=== PATIENT | female | born 1970 | race Caucasian/White ===

== ENCOUNTER → 2017-01-19 | Outpatient (CLI) | payer BC | LOC: MOB LAB 09:50 | PROVIDERS: ATTEND Nurse Practitioner Family | DX: Z01.419 Encounter for gynecological examination (general) (routine) without abnormal findings (principal) | CPT/HCPCS: 87491; 87591 ==

== ENCOUNTER → 2017-01-26 | Outpatient (CLI) | payer BC ==
--- NOTE | 2017-01-26 13:10 | DI ---
PELVIC ULTRASOUND, 01/26/2017 8:14 AM Clinical History: Dysfunctional uterine bleeding. Previous Exam: None at this facility. Technique: Transabdominal and transvaginal scans are performed. The uterus measures approximately 50 x 80 x 90 mm and is anteroflexed. The central uterine stripe gemma sures 14 mm. In the region of the fundus where the uterine stripe is thickness, there are hypoechoic areas that are contiguous with the uterine lining. They have the same sonographic pattern as the surr ounding uterine tissue and small submucosal fibroids cannot be excluded. The right ovary has a 9 mm s imple cyst and is otherwise normal. The left ovary is also normal. There are no fluid collections or masses. Readin. There is thickening of the central uterine stripe at 14 mm. Slightly hypoechoic areas are present within the central uterine stripe in these appear to be contiguous with the uterine wall and may rep resent submucosal fibroids. The uterus itself is otherwise normal. 2. There is a small simple cyst of the right ovary. The left ovary is normal.
--- NOTE | 2017-01-26 19:01 | DI ---
BILATERAL SCREENING FULL FIELD DIGITAL MAMMOGRAMS, 01/26/2017 8:14 AM: Clinical History: Screening. Previous Exam: None at this facility. The patient indicated that she has had a prior mammogram in 201 5 from [facility] [place]. We have requested the prior study. A supplemental rep ort will be issued upon receipt of that prior exam. Routine mediolateral oblique and craniocaudal views of each breast are obtained. Breast tissue densit y is rated as very dense. In the left upper-outer quadrant in the axillary tail region, there is an o void low-density opaque nodule measuring approximately 20 mm in diameter. This has the appearance of a cyst. Before any workup is initiated, comparison with previous mammograms is recommended. There are no abnormal calcifications. Skin contours, nipples, and lower axillary regions are normal. These benjie mograms were evaluated and reviewed with CAD software. Follow Up: Comparison with old mammograms is recommended. BIRADS: 0: Incomplete. Comparison with outside mammograms is recommended before any diagnostic work u p is initiated. Reading: Incomplete: Need prior mammograms for comparison.
== END ==
LOC: US 08:10
PROVIDERS: ATTEND Nurse Practitioner Family
DX: N93.8 Other specified abnormal uterine and vaginal bleeding (principal); N83.201 Unspecified ovarian cyst, right side; Z12.31 Encounter for screening mammogram for malignant neoplasm of breast; Z01.419 Encounter for gynecological examination (general) (routine) without abnormal findings
CPT/HCPCS: 76830; 76856; G0202

== ENCOUNTER → 2017-02-03 | Outpatient (CLI) | payer BC ==
[2017-02-03 09:56] LABS: BILIRUBIN,URINE NEGATIVE (NEG); CLARITY,URINE CLEAR (CLEAR); COLOR,URINE YELLOW; GLUCOSE, URINE (UA) NEGATIVE (NEG); NITRATE,URINE NEGATIVE (NEG); OCCULT BLOOD,URINE NEGATIVE (NEG); PROTEIN,URINE NEGATIVE (NEG); UROBILINOGEN,URINE 0.2 mg/dL (0.2)
[2017-02-03 09:57] LABS: URINE SAMPLE TYPE CLEAN CATCH URINE
[2017-02-03 10:35] LABS: SQUAMOUS EPITHELIAL CELL,UR RARE
== END ==
LOC: MOB LAB 08:16
PROVIDERS: ATTEND Obstetrics & Gynecology
DX: N39.41 Urge incontinence (principal)
CPT/HCPCS: 81001

== ENCOUNTER → 2017-02-23 | Outpatient (CLI) | payer BC ==
--- NOTE | 2017-02-23 10:53 | DI ---
LEFT BREAST ULTRASOUND, 02/23/2017 8:14 AM: Clinical History: Abnormal mammogram. Breast ultrasound was recommended after comparison with outside mammograms was performed. Scans are performed by the technologist and myself through all four quadrants of the left breast with the high resolution linear array probe. Color Doppler ultrasound was also performed. There are 2 cysts visible in the left upper-outer quadrant. They both measure approximately 15 x 15 x 25 mm and one is located at the 2:00 position and the other is located in proximity to the first les ion at the 3:00 position. In addition, multiple smaller cysts are visualized ranging in size from 5 m m up to 10 mm virtually in every quadrant. No solid lesions are identified. Follow Up: As long as this patient remains clinically asymptomatic, she may reenter a routine breast surveillance protocol consisting of monthly self breast exams if she so desires, and mammograms every year. BIRADS Category: 2. Benign finding. The abnormality located in the left upper-outer quadrant seen on the mammogram represents a cyst. Multiple other cysts are also noted. Reading: Benign finding.
== END ==
LOC: US 08:10
PROVIDERS: ATTEND Nurse Practitioner Family
DX: R92.8 Other abnormal and inconclusive findings on diagnostic imaging of breast (principal)
CPT/HCPCS: 76641

== ENCOUNTER 2017-07-20 10:51 | Observation (INO) ==
[2017-07-20] MEDS ORDERED: LIDOCAINE W/ SODIUM BICARB 0.5 ML SYR ONE (10:53)
[2017-07-20] MEDS ORDERED: Lactated Ringers 2,000 ML PRIMARY IV ONE (10:53)
[2017-07-20] MEDS ORDERED: Sodium Chloride 0.9% 100 ML IV ONE ×2 (10:54→19:18)
[2017-07-20 11:17] LABS: BILIRUBIN,URINE NEGATIVE (NEG); CLARITY,URINE CLEAR (CLEAR); COLOR,URINE YELLOW; GLUCOSE, URINE (UA) NEGATIVE (NEG); NITRATE,URINE NEGATIVE (NEG); OCCULT BLOOD,URINE Trace-intact (NEG); PH,URINE 5.5 (5.0-8.5); PROTEIN,URINE NEGATIVE (NEG); UROBILINOGEN,URINE 0.2 EU/dL (0.2)
[2017-07-20 11:20] LABS: RBC,URINE 0-3 /hpf; SQUAMOUS EPITHELIAL CELL,UR RARE; URINE SAMPLE TYPE CLEAN CATCH URINE
[2017-07-20 11:27] LABS: Hematocrit [HCT] 43.4 % (37.0-47.0); Hemoglobin [HGB] 14.6 g/dL (12.0-16.0)
[2017-07-20] MEDS ORDERED: ROCURONIUM 10 MG/1 ML - 5 ML VIAL IVP ONE (12:30)
[2017-07-20] MEDS ORDERED: fentaNYL Inj 100 MCG/2 ML VIAL ONE ×2 (12:33→19:23)
[2017-07-20] MEDS ORDERED: BUPivacaine 0.5%/Epi Inj 50 ML VIAL ONE (12:33)
[2017-07-20] MEDS ORDERED: KETOROLAC 30 MG/1 ML VIAL ONE (12:33)
[2017-07-20] MEDS ORDERED: LIDOCAINE HCL 2 % 10 ML JELLY URO-JECT TOPICAL ONE ×2 (12:33→13:04)
[2017-07-20] MEDS ORDERED: ONDANSETRON 4 MG/2 ML VIAL ONE (12:33)
[2017-07-20] MEDS ORDERED: MIDAZOLAM 5 MG/1 ML ONE ×2 (12:33→19:24)
[2017-07-20] MEDS ORDERED: LIDOCAINE MPF 2% - 5 ML (20 MG/1 ML) ONE ×2 (12:33→19:24)
--- NOTE | 2017-07-20 12:46 | OB.OP.NOTE ---
Operative Report Surgeon: Ser[facility]in Integrated Program Teacher: Bruce Woods MD Anesthesia Type: General Anesthesia Provider: Jaspal Atkinson CRNA Surgery Date: 07/20/17 Preoperative Diagnosis: Menometrorrhagia, dysmenorrhea, fibroid uterus, dyspareunia, patient desires definitive management with a hysterectomy and BSO Postoperative Diagnosis: Same Procedure: Exam under anesthesia, Robotic-assisted laparoscopic hysterectomy, bilateral salpingo-oophorectomy, cystoscopy Estimated Blood Loss (mL): 150 Fluids: 2500 mL LR. 150 mL of urine. 2 g Mefoxin IV prior to surgery Complications: None apparent Good hemostasis at the completion of the surgery Cystoscopy showed good spill from both ureters and a bubble in the dome of the bladder Findings at Surgery: Normal uterus tubes and ovaries Some of the small bowel that was in the cul-de-sac looked darker than the other small bowel and I had general surgery come into the operating room to look. Dr. Amador thought that most likely the bowel was that color secondary to ileus stool in the intestine. The color did improve during the case and was more similar to the other bowel by the end of the case. At no time did we operate near that bowel. Indications for the Procedure: The patient is a 46-year-old LMP 07/07/2017 using bilateral tubal ligation for contraception who presents today for a follow-up consult and preop for hysterectomy. Please see my notes for January and February 2017. Patient has MMR, dysmenorrhea, dyspareunia and a fibroid uterus. She also had an abnormal Pap smear but her colposcopy ECC and biopsy were both normal. Patient continues to have irregular heavy bleeding. Patient wishes definitive management with a hysterectomy. Patient does have occasional but not significant stress urinary incontinence. She also has some urge symptoms and the patient drinks a lot of caffeine and admits this but does not want to stop her caffeine. The patient also has some mood swings and anger issues at times. She also has some difficulty sleeping. She has talked with her primary care provider about these issues. 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 Recent Pap smears have been normal until this last one in the spring of 2016. Colposcopy was normal. Biopsies were normal. A should just had a mammogram. OB history with vaginal delivery 2 with the largest being her second delivery of 8 lbs. 9 oz. She did have a bad laceration but does not recall a third fourth degree extension. Past medical history no hypertension, no asthma, no diabetes Past surgical history laparoscopic tubal ligation Allergies to penicillin No tobacco, no alcohol for 5 years, patient used to drink alcohol significantly but stopped easily. No drugs. 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 The patient has a family history of paternal aunts having ovarian cancer in a maternal aunt having endometrial cancer. Both in her 40s. No siblings with cancer. Patient's father and mother did not have cancer. Patient 's father is . Physician History Last Cervical Cancer Screening: History of Abnormal PAP: Yes (In youth. Last [employer] was 2011) Mammogram: Last mammogram date: Jan 19, 2015 Results: negative Self Breast Exam performed: Yes Gynecology History Age at menarche: 14 Menstruation: Menstrual flow: varies- heavy to light Duration of menses: 3-10 Last menstrual period: Jan 11, 2017 Sexual history: Sexually active: No More than 1 sexual partner: Yes New sex partner in last 3 mos.: No Sexually transmitted diseases: Yes (chlamydia age 19-tx'd) Age of 1st [place]: 15 Contraception: Surgical Obstetric History history: : 2 Para: 2 Live births: 2 Prev. complications: No Previous vaginal delivery: Yes ROS-Woman's Health Constitutional: DENIES: Fever Cardiovascular: DENIES: Chest pain, Palpitations Respiratory: DENIES: Cough, Shortness of breath Gastrointestinal: DENIES: Abdominal pain, Black stools, Bloating, Bloody stools , Change in bowel habits Genitourinary: DENIES: Abnormal vaginal bleeding, Abnormal/Painful Periods, Change in urinary stream, Dysmenorrhea, Dyspareunia, Dysuria, Hematuria, Incontinence, Nocturia, Postmenopausal, Sexual dysfunction, Urinary frequency, Urinary urgency, Vaginal discharge EXAM-Gynecology, General Constitutional General appearance: comfortable Nutritional Status: Normal Orientation: alert and oriented x3 Respiratory Respiratory effort: normal Auscultation: Bilateral: Normal Cardiovascular Rhythm: regular Heart sounds: NORMAL: S1, S2 Gastrointestinal Abdomen description: Normal Bowel sounds: LUQ: Normal, LLQ: Normal, RUQ: Normal, RLQ: Normal Abdominal palpation: Abdomen: Soft LUQ: nontender LLQ: nontender RUQ: nontender RLQ: nontender Periumbilical: nontender Epigastric: nontender Suprapubic: nontender Organomegaly/mass: Organomegaly: none Mass: None Hernia : Location: None Rectal exam: Rectal exam deferred: Yes Psychiatric Mental status: Grossly normal Affect: normal Judgment: normal Gynecologic CVA tenderness: none External genitalia: Labia: Normal Lesion: none Clitoris: normal Introitus: Normal Urethra: Description: normal Urethral meatus: normal Bladder: Bladder: normal Vagina: Description: Normal Discharge: none Lesion: none Cervix: Cervix: Normal (large diameter) Discharge: none Uterus: Description: normal, anteverted (anteflexed but mobile. 9 x 8 x 5 cm) Adnexa: Adnexa: FINDINGS: normal Cul-de-sac: Description: normal Assessment/Plan Assessment/Plan: 1. Menometrorrhagia The patient has had significant MMR for a couple years. Endometrial biopsy was normal. She also had an abnormal Pap smear but colposcopy in spring 2016 was normal with normal ECC and normal cervical biopsy. Patient also has a fibroid uterus, dysmenorrhea and deep dyspareunia. The patient desires definitive management with a hysterectomy. The risk, benefits, alternatives and indication of a robotic-assisted laparoscopic hysterectomy and bilateral salpingo-oophorectomy was discussed with the patient in detail. Patient does desire her ovaries removed. Patient understands that she will most likely have to be on estrogen therapy postop for several years perhaps even 5 years or more. We did discuss the women's health initiative study previously. The risk of infection, bleeding, damage to bowel, bladder, nerve, vessel, hemorrhage, transfusion with associated risk, severe infection or damage to internal organs requiring future surgeries, blood clots to the legs or lungs, and even the low risk of were discussed with the patient. Vaginal shortening was also discussed with the patient. Physical therapy could help this with dilators. The patient expressed understanding of the risk and the consent form was signed. The patient will also go on the Internet and view a couple robotic hysterectomies. Cytotec 200 g per vagina evening before surgery will be prescribed so that her cervix is more amenable to have the uterine manipulator placed. I also prescribed a scopolamine patch to be applied behind the left or right ear evening before surgery. Anesthesia often requests this. 2. Fibroids, submucosal Please see above 3. Dysmenorrhea Please see above 4. Deep dyspareunia Please see above Description of Procedure: After the risks, benefits, alternatives and indications were discussed with the patient in detail. Patient was brought to the operating room in stable condition and underwent general endotracheal anesthesia without complication. The patient was placed in the dorsal lithotomy position in yellowfin stirrups. An exam under anesthesia was performed. Remaining Cytotec tablets were removed. Patient administered Cytotec per vagina the evening before to help soften and ripen the cervix for the uterine manipulator. The patient was then prepped and draped sterilely. A timeout was completed and the patient and procedure was identified appropriately. A Andrea catheter was placed into the patient's urethra after Xylocaine gel was placed in the patient's urethra. The Andrea bulb was insufflated. A weighted speculum was placed in the patient's posterior vagina and a Herman retractor was placed anteriorly and the cervix was visualized and grasped with a single-tooth tenaculum on the anterior lip of the cervix. The uterus was sounded to 8 centimeters An 8 centimeter tip was requested for the uterine manipulator. A large Freida ring was selected and the uterine manipulator was assembled and then the tip was placed through the patient's cervix and insufflated with air and then the Freida ring was placed around the patient's cervix and recheck to ensure that it was circumferentially around the cervix. Gloves were changed. Attention was then turned to the patient's abdomen. The inferior to the umbilicus was injected with quarter percent Marcaine with epinephrine. An infraumbilical incision was made vertically about 1.2 cm. The scope with the Visiport was placed directly into the abdominal cavity without incidence. The intra-abdominal cavity was allowed to insufflate with CO2 gas. The patient was placed in Trendelenburg. There was no evidence of any trocar injury with direct placement of the trocar and sleeve. The trocar was removed and the scope was placed back into the abdominal cavity. The abdomen was examined and there was no intra-abdominal pathology noted. Lateral to the umbilicus on the right side the next trocar and sleeve site was selected. Quarter percent Marcaine with epinephrine was injected into the skin and then a 1 cm incision was made and then the trocar and sleeve was placed under direct visualization. The trocar was removed. The sleeve was left in place. The same was done on the right side lateral to the umbilicus about 9 cm. The robot was then moved over to the operating room table. The 3 robotic arms were elected to the 3 trocar sleeves that were intra-abdominal. 1 infraumbilically and one on the right and one on the left side. I then placed the vessel sealer in robot arm #1 and the gyrus bipolar and robot arm #2 and of course the laparoscope was placed in the infraumbilical trocar sleeve. Photographs were taken of the patient's uterus and ovaries. Of note, the appendix was visualized but I did not take a photograph of the appendix. It appeared healthy. In the cul-de-sac there was actually small intestine and one section looked darker than the other and I actually had Dr. Amador who is our general surgeon here come in and do the bowel and he thought that the bowel was darker than the other secondary to some bilious material that was in that area. This darkness did slowly resolve over the case time. The patient had not been complaining abdominal pain. No surgery was performed next to that bowel at any time. Attention was then turned to the patient's right ovary and fallopian tube and the IP ligament was identified and the vessel sealer was used to cauterize the IP and then the vessel sealer cauterized and then cut the IP and then continued up to the round ligament cauterizing and cutting. There was good hemostasis. The round ligament was then identified and cauterized with the vessel sealer and then cut. And then the uterine vessels along the uterus and then cervix were skeletonized and then cauterized with the vessel sealer and then cut. Attention was then turned to the patient's left ovary and fallopian tube and the IP ligament was identified and the vessel sealer was used to cauterize the IP and then the vessel sealer cauterized and then cut the IP and then continued up to the round ligament cauterizing and cutting. There was good hemostasis. The round ligament was then identified and cauterized with the vessel sealer and then cut. And then the uterine vessels along the uterus and then cervix were skeletonized and then cauterized using the vessel sealer and then cut. The vessel sealer was then removed and the monopolar scissors were then placed. A bladder flap was then created using the monopolar scissors identifying the Freida ring. The uterine vessels were then continued to be skeletonized and then cauterized and cut so that the vessels could drop away from the patient's cervix on the right side and then the left side. The bladder flap was examined to ensure that it was far enough away from the incision site of the vaginal incision. At this time, it was thought that I could use the monopolar scissors to circumferentially make my vaginal incision and the monopolar scissors incised the vagina along the Freida ring and I was able to visualize the blue Freida ring easily. I then circumferentially from 12 to 3:00 and then 12 to 9:00 incised the vagina along the Freida ring. The uterus was then anteverted and elevated and I then made my incision starting at about 6:00 on the posterior vagina and then incised to about 3:00 and then completed the circumferential incision from 6:00 to 9:00. The cervix and uterus and tubes and ovaries were then removed through the vagina. The suction home care liaison was placed in the #1 port and suction some blood and then irrigated copiously amounts of fluid and then suctioned. There was a small bleeder on the posterior cuff that was bovied using the bipolar. The vaginal cuff was then closed using 0 V-lock suture that was looped. I started on the patient's left side and worked my way towards the patient's right side. There was a small amount of bleeding on the right side of the vaginal cuff. The closure of the vaginal cuff was completed and then the gyrus bipolar was used to cauterize a small amount of bleeding. At the completion of the surgery, there was excellent hemostasis. The suction home care liaison was used again to irrigate and then suction any fluid. Photographs were then taken. The needle was left in place in the peritoneum to be removed later after the robot was disconnected from the trocar sleeves. The Andrea catheter was removed, and the vagina was examined with a sponge stick gently and there was good hemostasis and no bright red bleeding. Minimal old blood. A B&O suppository was placed. 30 mg B and O suppository. Gloves and gown were then changed. Attention was turned to the patient's abdomen. The robot was disconnected and moved away from the table. A scope was placed in the right lateral sleeve and a grasper was placed in the infraumbilical sleeve and under direct visualization the needle was remaining suture was removed. The vaginal cuff was then examined again and the CO2 gas was allowed to escape so the abdomen was not tense with CO2 insufflation and there was very good hemostasis of the entire vaginal cuff. The scope was removed. The trocar sleeves were removed after the CO2 gas was allowed to escape the abdomen. We then closed the infraumbilical fascia with 0 Vicryl suture in a figure-of- eight suture and then 4-0 Monocryl suture to close the subcutaneous tissue. 4- 0 Monocryl suture was also used to close the other 2 left and right lateral sites. 4-0 stratafix suture was then used to close the skin of each incision site 3. Steri-Strips were then placed and then bandages. The patient was then awakened from her general endotracheal anesthesia in stable condition. Sponge lap and needle counts were correct 2. The patient was brought to the PACU in stable condition. Plan: The patient will be observed overnight. Hopefully discharged in the morning.
[2017-07-20] MEDS ORDERED: BUPIVACAINE 0.5% W/ EPI - 10 ML VIAL ONE (12:55)
[2017-07-20] MEDS ORDERED: PROMETHAZINE 25 MG/1 ML VIAL IM PRN ×2 (13:09→16:51)
[2017-07-20] MEDS ORDERED: fentaNYL Inj 100 MCG/2 ML VIAL IVP PRN ×2 (13:09→21:28)
[2017-07-20] MEDS ORDERED: ONDANSETRON 4 MG/2 ML VIAL IVP PRN (13:09)
[2017-07-20] MEDS ORDERED: NORMAL SALINE 10 ML SYRINGE FLUSH IVP PRN ×3 (13:09→21:28)
[2017-07-20] MEDS ORDERED: HYDROmorphone 2 MG/1 ML IVP PRN ×2 (13:09→21:28)
[2017-07-20] MEDS ORDERED: KETAMINE 100 MG/1 ML - 5 ML ONE (13:13)
[2017-07-20] MEDS ORDERED: Lactated Ringers 1,000 ML PRIMARY IV SCH (13:15)
[2017-07-20] MEDS ORDERED: SUGAMMADEX SODIUM 200 MG/2 ML VIAL IV ONE (14:23)
[2017-07-20] MEDS ORDERED: Opium-Belladonna 30-16.2mg 1 EACH SUPP.RECT RECTAL ONE ×2 (14:26→15:00)
[2017-07-20] MEDS ORDERED: KETOROLAC 15 MG/1 ML VIAL IVP PRN (16:51)
[2017-07-20] MEDS ORDERED: Ondansetron ODT Tab 8 MG TAB PO PRN (16:51)
[2017-07-20] MEDS ORDERED: Promethazine Tab 25 MG TAB PO PRN ×2 (16:51→22:29)
[2017-07-20] MEDS: oxyCODONE-ACETAMINOPHEN 5-325 TAB PO PRN (17:54)
[2017-07-20 18:55] LABS: BASOPHILS # (AUTO) 0.04 10*3/UL; BASOPHILS % (AUTO) 0.2 % (0-1); EOSINOPHILS # (AUTO) 0 10*3/UL; EOSINOPHILS % (AUTO) 0 % (0-8); Hematocrit [HCT] 34.2 % (37.0-47.0); Hemoglobin [HGB] 11.5 g/dL (12.0-16.0); LYMPHOCYTES # (AUTO) 0.96 10*3/uL; MEAN CORPUSCULAR HGB CONC 33.6 g/dL (33-37); MEAN CORPUSCULAR VOLUME 86.4 FL (81-99); MEAN PLATELET VOLUME 9.7 FL (7.4-12.2); MONOCYTES # (AUTO) 0.37 10*3/UL (0.3-0.8); MONOCYTES % (AUTO) 1.8 % (5-15); NEUTROPHILS # (AUTO) 18.61 10*3/UL; NEUTROPHILS % (AUTO) 92.9 % (50-80); RED BLOOD COUNT 3.96 10^6/uL (4.20-5.40)
[2017-07-20 18:57] LABS: PLATELET MORPHOLOGY COMMENT NORMAL MORPHOLOGY (NORM); RBC MORPHOLOGY COMMENT NORMAL MORPHOLOGY (NORM); WBC MORPHOLOGY COMMENT NORMAL MORPHOLOGY (NORM)
[2017-07-20] MEDS ORDERED: ERTAPENEM 1 GM VIAL ONE (19:18)
[2017-07-20] MEDS ORDERED: Lactated Ringers 1,000 ML PRIMARY IV ONE (19:23)
[2017-07-20] MEDS ORDERED: SUCCINYLCHOLINE CHLORIDE 20 MG/1 ML - 10 ML ONE (19:33)
--- NOTE | 2017-07-20 19:39 | PDOC(PROG) ---
Subjective Post Op Day: 0 Concerns / Additional Information: I was called by the nurse to see the patient since the patient had some bleeding on a pad but then got up to use the restroom and had 200 mL of blood in the urinal hat. The patient states that she is continuing to bleed like a menses intermittently. No increased abdominal pain. Objective - General General Appearance: POSITIVE: No Acute Distress, Cooperative - Cardiovacular Cardiovascular Exam: POSITIVE: RRR Extremities: Negative Cindy's - Bilaterally - Abdomen Abdominal Wound Assessment: Steri Strips Applied Other Abdominal Exam Details: The patient's abdomen is soft and nontender were appropriately tender postop. No guarding or rebound. Nondistended. Assesstment / Plan Assessment / Plan: Postoperative day #0 status post robotic-assisted laparoscopic hysterectomy/BSO/ cystoscopy who was hemostatic at the time the surgery finished but postoperatively a few hours out had increased vaginal bleeding for a total of about 350 mL per the nurse and the patient continues to have some bleeding. The patient's H&H dropped slightly from preop of 14/43 to 11 and 34. White count was 20,000 and platelets are 290,000. Plan: The patient has been consented to go back to the operating room for an exam under anesthesia, vaginal exam and possibly opening up the vaginal cuff and then closing the vaginal cuff from the vaginal perspective. Possible laparoscopy to look for bleeding and possible laparotomy. We also discussed the low possibility of the vessel retracted and caused a large hematoma that I may need to pack the patient's vagina and transport her. We also talked about the possibility of DIC and needing multiple types of blood products. The risk of bleeding, pain, damage to bowel, bladder, nerve, vessel, blood transfusion with associated risks, blood clots to the legs or lungs and the low risk of were discussed with patient. We also discussed the possible transfer of the patient to a tertiary care hospital. We also discussed the possibility of more surgeries needed or procedures needed if the patient develops an infection. The patient will receive ertapenem or Invanz 1 g IV. The patient reportedly has an allergy to penicillin-she developed a rash when she was a little child and has not had penicillin since then. The patient had Mefoxin this morning after a negative skin testing. The cross reactivity between ertapenem and penicillin is a possibility but the patient does not have a reported anaphylactic reaction. I gave the ertapenem for broad-spectrum coverage since we had to take the patient back to the operating room. The patient expressed understanding with this plan. The consent forms were signed and the patient will be brought to the operating room. The Patient's daughter was also here and I discussed this with her.
[2017-07-20] MEDS ORDERED: ePHEDrine Inj 50 MG/ML AMP ONE (19:54)
[2017-07-20] MEDS: Lactated Ringers 1,000 ML PRIMARY IV SCH (20:06)
[2017-07-20] MEDS ORDERED: Sodium Chloride 0.9% vial 10 ML ONE (20:08)
[2017-07-20] MEDS ORDERED: PHENYLEPHRINE 10,000 MCG/1 ML VIAL ONE (20:08)
--- NOTE | 2017-07-20 21:16 | OB.OP.NOTE ---
Operative Report Surgeon: Serafin Director Home Health: Bruce Woods MD Anesthesia Type: General Anesthesia Provider: Jaspal Atkinson CRNA Surgery Date: 07/20/17 Preoperative Diagnosis: Postoperative bleeding status post hysterectomy/BSO/ cysto Postoperative Diagnosis: Vaginal cuff bleeding Procedure: Exam under anesthesia. Vaginal cuff opened status robotic-assisted laparoscopic hysterectomy/BSO. Closure of vaginal cuff after identifying vaginal cuff bleeders Estimated Blood Loss (mL): 300 Fluids: 1500 mL LR. 250 mL urine. 1 g of ertapenem preoperatively Complications: None apparent for this surgery but vaginal cuff bleeding did occur postoperatively Findings at Surgery: The vaginal cuff was visualized and there is some dark blood in the vaginal vault. I had just removed a small clot prior to prepping the patient. The vaginal cuff 0 V-lock suture was intact. There was no visualized bleeding. When the vaginal cuff was opened by taking the 0V lock suture out, there was blood clot that was removed. There were 2 vaginal cuff bleeders at the right apex that were visualized. There was one vaginal cuff bleeder on the left apex that was visualized There was good hemostasis after closure of the vaginal cuff After the initial blood clot was removed from the vaginal cuff after opening the vaginal cuff, there did not appear to be any bleeding higher up in the abdomen. Additionally, Using lap sponges and placing them vaginally up into the abdomen, there did not appear to be any active bleeding and the abdominal cavity because when the lap sponges were removed, the lap sponge that was higher in the abdomen was not bloodied. Indications for the Procedure: The patient is a 46-year-old who had a robotic-assisted laparoscopic hysterectomy, bilateral salpingo-oophorectomy, and cystoscopy had postoperative bleeding and had to be taken back to the operating room for exam under anesthesia and surgery to allow for good hemostasis. Description of Procedure: The patient was brought back to the operating room after the risks, benefits, alternatives and indications were discussed with the patient in detail. Consent form was signed. The patient was brought to the operating room. The patient underwent general endotracheal anesthesia without complication. The patient was placed in the [facility] an acute care hospital in dorsal lithotomy position. A gentle exam under anesthesia showed a small clot in the vaginal vault that no bulging vagina and no hematoma was noted. The vaginal cuff appeared intact. The patient was prepped and draped sterilely. The patient's vagina was prepped. A timeout was completed and the patient and procedures were identified. A Andrea catheter was placed in the patient's bladder and allowed to drain clear yellow urine. A weighted speculum was placed posteriorly and a Jose C retractor was placed anterior to examine the vaginal cuff. The V lock suture was noted to be intact. There was no active bleeding. There was some minor dark blood in the vaginal vault. At that time, we decided to open the vaginal cuff by cutting the V lock suture and then removing the suture. This was completed starting the patient's left side. Suture is removed and some blood clot oozed out from behind vaginal cuff. The remainder of the suture was removed. Where the 0V lock suture was placed through the loop at the left angle, there was a bleeder and I was able to grasp this with an Allis clamp and suture behind this and tied this and allow for hemostasis. At the right angle of the vaginal cuff, there was a bleeder which was grasped with an Allis clamp and then in a [id number] suture with 0 Vicryl suture allow for hemostasis. There was one more bleeder that was noticed at the right vaginal cuff angle that was bleeding or actually pulsating and thought to be an arterial bleed and was initially grasped with an Allis and then grasped behind it with a Madiha clamp and then a 0 Vicryl suture was used to tie around this bleeder and then there was excellent hemostasis. Copious amounts of irrigation were used. A lap sponge was placed up into the patient's abdomen from the vaginal side and this was done to retract the bowel out of the way so that we could get a clear view of the vaginal cuff and slightly above. There did not appear to be any more bleeders. When the lap sponge was removed, there was not bright red blood on the lap sponge that was in the abdomen. Several lap sponges were used intermittently that were soaked with saline to placed through the vagina through the vaginal cuff and into the abdomen to allow for retraction but also to ensure that there is not bleeding higher up in the pelvis or lower abdomen. Again copious amounts of irrigation were used and the vaginal cuff area was examined for bleeding and there was good hemostasis. Additionally, there was no bleeding that was noted to be coming from her upper pelvis or abdomen. Anesthesia inform me that the patient's vital signs were normal. At this time the posterior peritoneum was closed in that the peritoneum was grasped starting at the patient's left angle and suture was placed through the peritoneum and then through the vaginal cuff and this was done in a running fashion. Good hemostasis. Then the anterior peritoneum was identified and the anterior peritoneum was closed to the posterior peritoneum using 2-0 Vicryl suture. There was good hemostasis. Copious amounts of irrigation were used to irrigate the vaginal cuff. The vaginal cuff was then closed anterior to posterior starting anteriorly with 0 Vicryl suture in a running fashion. The vaginal cuff was then examined. There was good hemostasis. A rectal exam was completed and no hematomas were noted. Sponge lap and needle counts were correct 2. Anesthesia inform me that the patient's vital signs were normal. The patient's abdomen was examined and was soft and not rigid. Therefore with all the above information, I did not believe that there was a bleeder in the patient's upper pelvis or abdomen. The patient was awakened from her general endotracheal anesthesia and brought to the PACU in stable condition. Sponge lap and needle counts were correct 2. The Andrea catheter was left in place. The patient was awakened from her general endotracheal anesthesia. Plan: New orders were not written since the patient's orders from the [facility] were still intact. I did add a Andrea catheter to gravity. Patient will be observed tonight, tomorrow and possibly through Monday morning. A CBC and a CMP will be ordered for the morning. I did speak with the patient's daughter and also with the patient when she was awake from anesthesia.
[2017-07-20 22:17] VITALS: RESP 18
[2017-07-21] MEDS ORDERED: KETOROLAC 15 MG/1 ML VIAL ONE (11:04)
[2017-07-21 15:22] LABS: Hematocrit [HCT] 27.9 % (37.0-47.0); Hemoglobin [HGB] 9.2 g/dL (12.0-16.0); MEAN CORPUSCULAR VOLUME 87.7 FL (81-99); RED BLOOD COUNT 3.18 10^6/uL (4.20-5.40)
[2017-07-21 15:23] LABS: MEAN CORPUSCULAR HEMOGLOBIN 28.9 PG (27-31); MEAN PLATELET VOLUME 10.5 FL (7.4-12.2); MONOCYTES % (AUTO) 6.9 % (5-15); NEUTROPHILS % (AUTO) 79.5 % (50-80)
[2017-07-21 15:24] LABS: BASOPHILS # (AUTO) 0.02 10*3/UL; BASOPHILS % (AUTO) 0.2 % (0-1); EOSINOPHILS # (AUTO) 0.01 10*3/UL; EOSINOPHILS % (AUTO) 0.1 % (0-8); LYMPHOCYTES # (AUTO) 1.74 10*3/uL; MONOCYTES # (AUTO) 0.91 10*3/UL (0.3-0.8); NEUTROPHILS # (AUTO) 10.57 10*3/UL; PLATELET MORPHOLOGY COMMENT NORMAL MORPHOLOGY (NORM); RBC MORPHOLOGY COMMENT NORMAL MORPHOLOGY (NORM); WBC MORPHOLOGY COMMENT NORMAL MORPHOLOGY (NORM)
[2017-07-21 15:25] LABS: BLOOD UREA NITROGEN 9 mg/dL (7-22); SERUM ALBUMIN 2.8 g/dL (3.5-4.8)
[2017-07-21] MEDS: Lactated Ringers 1,000 ML PRIMARY IV SCH (16:08)
--- NOTE | 2017-07-21 17:13 | PDOC(PROG) ---
Subjective Post Op Day: 1 Pain Management: IV Toradol Andrea Catheter: No Flatus: Yes Diet: Regular Ambulating: Yes Concerns / Additional Information: The patient states that she is feeling a little bit better. She likes the combination of the Toradol scheduled plus Percocet when necessary. The patient has not had a problem with her Andrea discontinued and is voiding well. No vaginal bleeding. The patient's usual temperature is 97 at home and the patient was concerned when her temperature was 99 earlier. The patient just had her temperature taken and it was 98 5. The patient ordered prime rib for dinner. She is hungry and not having a problem with nausea. Objective - General General Appearance: POSITIVE: No Acute Distress, Cooperative - Cardiovacular Cardiovascular Exam: POSITIVE: RRR Extremities: Negative Cindy's - Bilaterally - Respiratory Respiratory Exam: POSITIVE: Clear to Auscultation - Bilaterally - Abdomen Bowel Sounds: Present Abdominal Wound Assessment: Well Approximated - - Additional Details: Abdominal exam appropriately tender without guarding or rebound. Positive tenderness periumbilically without guarding or rebound. This was in the site of her infraumbilical incision site. Assesstment / Plan Assessment / Plan: Assessment: Postoperative day #1 status post robotic-assisted laparoscopic hysterectomy and BSO and cystoscopy then the patient had vaginal bleeding postoperatively and we took the patient back to the operating room and when the vaginal cuff was opened and the sutures were removed there was a bleeder at the right angle of the vaginal cuff as well as a couple other bleeders. These bleeders were tied off and there was good hemostasis and then the peritoneum was closed and then the vaginal cuff was closed. The patient's H&H this morning was 9 and 27. The patient's vital signs of been good. Plan: Secondary to the patient having to go back to the operating room last evening for vaginal bleeding undergoing a second general anesthesia and the patient having a temperature of 99 today with her usual temperature at home 97, I would like to keep the patient here in the hospital overnight for observation and vital signs. Additionally, I would like to give the patient one more dose of ertapenem 1 g IV around 1930 hrs. today. This is prophylactic and not treating an infection since the patient had the first robotic-assisted laparoscopic hysterectomy and then a vaginal surgery repairing the vaginal cuff after the vaginal cuff bleeders were identified, I would like to the treat the patient with ertapenem prophylactically one more dose. Observe the patient overnight, check a CBC in the morning and then if the patient is doing well; consider discharge in the morning. The patient may need to be admitted to inpatient status depending upon the patient's insurance and this will be checked. Otherwise, continue the observation status until tomorrow morning. The patient expressed understanding with this current plan and is in agreement.
[2017-07-21] MEDS ORDERED: Ertapenem Inj 1 GM in Sodium Chloride 0.9% 100 ML IV SCH (19:30)
[2017-07-21] MEDS: oxyCODONE-ACETAMINOPHEN 5-325 TAB PO PRN (20:14)
[2017-07-21] MEDS: KETOROLAC 15 MG/1 ML VIAL IVP SCH (22:43)
[2017-07-22] MEDS: KETOROLAC 15 MG/1 ML VIAL IVP SCH (04:34)
[2017-07-22 06:29] LABS: BASOPHILS # (AUTO) 0.08 10*3/UL; BASOPHILS % (AUTO) 1.2 % (0-1); EOSINOPHILS # (AUTO) 0.09 10*3/UL; EOSINOPHILS % (AUTO) 1.4 % (0-8); Hematocrit [HCT] 26.1 % (37.0-47.0); Hemoglobin [HGB] 8.3 g/dL (12.0-16.0); LYMPHOCYTES # (AUTO) 2.15 10*3/uL; MEAN CORPUSCULAR HEMOGLOBIN 28.6 PG (27-31); MEAN CORPUSCULAR HGB CONC 31.8 g/dL (33-37); MEAN PLATELET VOLUME 9.4 FL (7.4-12.2); MONOCYTES # (AUTO) 0.46 10*3/UL (0.3-0.8); MONOCYTES % (AUTO) 7.1 % (5-15); NEUTROPHILS # (AUTO) 3.66 10*3/UL; NEUTROPHILS % (AUTO) 56.8 % (50-80); PLATELET MORPHOLOGY COMMENT NORMAL MORPHOLOGY (NORM); WBC MORPHOLOGY COMMENT NORMAL MORPHOLOGY (NORM)
[2017-07-22 06:30] LABS: RBC MORPHOLOGY COMMENT NORMAL MORPHOLOGY (NORM)
[2017-07-22 07:05] VITALS: TEMP 98.4
[2017-07-22 08:53] VITALS: BP 123/73
[2017-07-22] MEDS ORDERED: IBUPROFEN 800 MG TABLET PO ONE (09:42)
[2017-07-22] MEDS ORDERED: DOCUSATE 100 MG CAPSULE PO ONE (09:43)
--- NOTE | 2017-07-22 09:52 | PDOC(PROG) ---
Subjective Post Op Day: 2 Pain Management: PO Andrea Catheter: No Flatus: Yes Diet: Regular Ambulating: Yes Concerns / Additional Information: The patient was feeling slightly lightheaded this morning and had some pressure in the back of her head. She ate something and she felt better. She does not currently feel lightheaded. She has ambulated in the hallway this morning. Minimal bleeding vaginally. Nothing at all like the other day postoperatively. The patient is passing flatus. Tolerating a regular diet. The patient desires to go home. Objective - General General Appearance: POSITIVE: No Acute Distress (Blood pressure and pulse lying was 108/47 and 82, blood pressure and pulse sitting was 124/72 and 88, and then blood pressure and pulse standing was 93/77 and a pulse of 96), Cooperative - Cardiovacular Cardiovascular Exam: POSITIVE: RRR, No Murmur Edema: No Pedal Edema Extremities: Negative Cindy's - Bilaterally - Respiratory Respiratory Exam: POSITIVE: Clear to Auscultation - Bilaterally - Abdomen Bowel Sounds: Present (All 4 quadrants) Abdominal Wound Assessment: Steri Strips Applied (2 x 2 and then Band-Aid.) - - Additional Details: Abdomen is soft without guarding or rebound. Appropriate tenderness. Negative heel tap. Nondistended. Assesstment / Plan Assessment / Plan: Assessment: Postoperative day #2 status post robotic-assisted laparoscopic hysterectomy, BSO and then cystoscopy and then postoperative bleed and patient was brought back to the operating room and was found to have a vaginal cuff bleeder after opening up the vaginal cuff. No evidence of higher pelvic bleed or abdominal bleed. With closure of the vaginal cuff after [id number] sutures placed around the few vaginal cuff bleeders, there has been very little vaginal bleeding. The patient's H&H is appropriate for the blood loss that she had. The patient's H&H this morning was 8 and 26 with yesterday being 9 and 27. The patient's blood pressure dropped slightly from sitting to standing and her pulse increased from 82-96 from lying to standing. Otherwise, the patient is doing very well. The patient's white count is normal. The patient's abdominal exam shows appropriate tenderness with excellent bowel sounds and the patient is passing flatus. Plan: Discharge home today Ibuprofen 800 mg 1 by mouth 3 times a day with food or milk for 5 days then 3 times a day with food or milk as needed Oxycodone/Tylenol 1-2 tablets by mouth every 6 hours when necessary pain Ferrous sulfate 325 mg 1 tablet twice by mouth twice a day for at least 30 days but I did give the patient 1 refill. Colace 100 mg capsule 1 tablet by mouth daily to twice a day when necessary constipation. Usual postoperative instructions. I will contact the patient so the patient can see me early next week on Monday or Monday for a postoperative follow-up. The patient should return for fever, increasing abdominal pain, increasing vaginal bleeding, or just not feeling well. The patient will eventually need a postoperative follow-up with me at about 6-8 weeks out from the surgery
--- NOTE | 2017-07-22 10:15 | DCSUMMARY ---
Hospitalization Summary Admit Date: 07/20/17 Discharge Date: 07/22/17 Primary Diagnosis:: menometrorrhagia, fibroid uterus, dysmenorrhea, dyspareu Secondary Diagnosis:: Patient desires definitive management with a hysterectomy Hospital Course: Patient was admitted as an outpatient for a robotic-assisted laparoscopic hysterectomy, bilateral salpingo-oophorectomy and cystoscopy on 07/20/2017. The patient underwent the above surgery and was hemostatic at the completion of the surgery. However, a few hours postoperatively, the patient had vaginal bleeding that was significant. The patient was brought back to the operating room and although there was no acute vaginal bleeding noted, the vaginal cuff was opened up and a significant amount of blood was evacuated behind the vaginal cuff and there were a few vaginal bleeders with one specific one on the right angle of the vaginal cuff that was most likely arterial. The bleeders were tied off and the vaginal cuff was closed again and the patient has done well postoperatively. The patient's postoperative H&H was 9 and 27 and the today was 8 and 26. The patient was slightly lightheaded but her pulse elevated only by 14 from supine to standing and the patient opted for conservative management with iron and fluids and a healthy diet versus a blood transfusion. The patient was discharged on postoperative day #2 with normal vital signs, afebrile and a normal white count and the H&H as above. The patient will follow up with me next week. The patient was given the usual precautions to return sooner. Pathology is pending at the time of discharge. Exam - Vitals Vital Signs: Vital Signs Temperature 98.4 F Temperature Source Oral Pulse Rate [Pulse Oximeter] 66 Pulse Rate 63 Respiratory Rate 18 Blood Pressure [Lying] 109/62 Blood Pressure [Sitting] 122/71 Blood Pressure [Standing] 123/73 Blood Pressure [Right Arm] 113/59 Blood Pressure 95/62 Pulse Ox 98 Oxygen Flow Rate 1 Oxygen Flow Rate 2 Oxygen Delivery Method Room Air Height 5 ft 2 in Weight 114 lb 9.6 oz
== END 2017-07-22 11:20 | disposition home or self-care (01) ==
LOC: SDSC 10:51 → MED/SURG 16:51
PROVIDERS: ADMIT Obstetrics & Gynecology; ATTEND Obstetrics & Gynecology